=== PATIENT | female | born 1930 | race Caucasian/White ===

== ENCOUNTER → 2016-05-05 | Outpatient (CLI) | payer MEDICARE ==
[~2016-05-05] MED LIST: AC325T PO; ALPR.25T PO; ANTI1CAP2 PO; ATN25T PO; AZIT250T5 PO; CALC-140 PO; CALC500T55 PO; CEPH500T PO; CHOL10002 PO; CHOL200018 PO; DGX.125T PO; DIGO125T PO; FAMO40TA6 PO; FAMO40TA72 PO; GFN600TCR PO; GLIP10TA13 PO; GUAI5SYR PO; HYDR12.5 PO; MELA5TAB5 PO; MIRT15TA8 PO; MULT-557 PO; OMEG-9 PO; OMG1KC PO; RAMI10CA PO; SIMV80TA3 PO; SRTR100T PO; VITA-187 PO; VITA-37 PO; WARF3TAB PO; WRF2T PO; WRF3T PO
== END ==
LOC: LAB 11:47
PROVIDERS: ATTEND Family Medicine
DX: Z51.81 Encounter for therapeutic drug level monitoring (principal); Z79.01 Long term (current) use of anticoagulants; I48.91 Unspecified atrial fibrillation
CPT/HCPCS: 36415; 85610

== ENCOUNTER → 2016-05-11 | Outpatient (CLI) | payer MEDICARE | LOC: EMS 21:55 | PROVIDERS: ATTEND Emergency Medicine | DX: R42 Dizziness and giddiness (principal) ==

== ENCOUNTER 2016-05-12 00:05 | Observation (INO) | payer MEDICARE ==
[~2016-05-12] VITALS: Ht 167.6 cm; Wt 73.8 kg
[2016-05-12] VITALS (7 sets, daily range): BP systolic 119–174; BP diastolic 65–92
[2016-05-12] MEDS ORDERED: MECLIZINE 25 MG (ANTIVERT) TABLET PO ONE (00:20)
[2016-05-12] MEDS ORDERED: SODIUM CHLORIDE FLUSH 10 ML SYR IV PRN (00:20)
[2016-05-12] MEDS ORDERED: NS IV 500 ML 500 ML IV SCH (00:20)
[2016-05-12] MEDS ORDERED: SODIUM CHLORIDE 250 ML IV PRN (00:20)
[2016-05-12] MEDS ORDERED: SODIUM CHLORIDE FLUSH 3 ML SYR IV PRN (00:20)
[2016-05-12] MEDS ORDERED: ONDANSETRON 2 MG/ML (Z0FRAN) 2 ML VIAL IV ONE (00:20)
[2016-05-12 01:17] LABS: BASOPHILS % (AUTO) 1 % (0-2); EOSINOPHILS # (AUTO) 0.2 10^3uL; EOSINOPHILS % (AUTO) 2 % (0-4); LYMPHOCYTES # (AUTO) 1.5 X10^3; MEAN CORPUSCULAR HEMOGLOBIN 30.4 PG (26.0-34.0); MEAN CORPUSCULAR HGB CONC 33.7 g/dL (31.0-37.0); MEAN CORPUSCULAR VOLUME 90 FL (80-100); MEAN PLATELET VOLUME 10.9 FL (6.0-9.5); MONOCYTES # (AUTO) 0.6 X10^3; MONOCYTES % (AUTO) 7 % (3-11); NEUTROPHILS # (AUTO) 6.6 X10^3; NEUTROPHILS % (AUTO) 73 % (51-67); PLATELET COUNT 183 10^3uL (150-450); WHITE BLOOD COUNT 9.04 10^3uL (4.0-11.0)
[2016-05-12 01:28] LABS: BILIRUBIN,URINE Negative (Negative); CLARITY,URINE Clear; COLOR,URINE Yellow; GLUCOSE, URINE (UA) Negative (Negative); LEUKOCYTE ESTERASE ,URINE 2+ (Negative); UROBILINOGEN,URINE 0.2 mg/dL (0.2-1.0)
[2016-05-12 01:41] LABS: RBC,URINE None Seen /HPF; URINE CENTRIFUGED VOLUME 12 mL
[2016-05-12 01:50] LABS: ALBUMIN 4.2 g/dL (3.4-5.0); ALKALINE PHOSPHATASE 76 U/L (38-126); ANION GAP 15.2 MEQ/L (3-15); BUN/CREATININE RATIO 26 (10-20); CALCULATED IONIZED CALCIUM 4.3 mg/dL (3.8-4.6); CREATINE KINASE 39 U/L (30-135); TOTAL PROTEIN 7.1 g/dL (6.4-8.5)
[2016-05-12] MEDS ORDERED: cefTRIAXone SODIUM 1,000 MG in SODIUM CHLORIDE 50 ML IV ONE (02:05)
[2016-05-12] MEDS ORDERED: ONDANSETRON 2 MG/ML (Z0FRAN) 2 ML VIAL IV PRN (04:40)
[2016-05-12] MEDS ORDERED: DOCUSATE SODIUM 100 MG (COLACE) CAP PO PRN (04:40)
[2016-05-12] MEDS: cefTRIAXone SODIUM 1,000 MG in SODIUM CHLORIDE 50 ML IV SCH ×2 (04:40→05:41)
[2016-05-12] MEDS ORDERED: ACETAMINOPHEN 325 MG TAB (TYLENOL) PO PRN (04:40)
[2016-05-12] MEDS ORDERED: POLYETHYLENE GLYCOL 17 GM (MIRALAX) PACKET PO PRN (04:40)
[2016-05-12] MEDS ORDERED: BISACODYL 10 MG SUPP (DULCOLAX) PR PRN (04:40)
[2016-05-12] MEDS ORDERED: SODIUM CHLORIDE 50 ML IV ONE (05:33)
[2016-05-12] MEDS ORDERED: cefTRIAXone 1 GM (ROCEPHIN) VIAL ONE (05:33)
[2016-05-12] MEDS: PANTOPRAZOLE 40 MG (PROTONIX) TAB PO SCH (06:25)
[2016-05-12] MEDS: OMEGA-3 ACID ETHYL ESTERS 1 GM (LOVAZA) CAPSULE PO SCH (08:45)
[2016-05-12] MEDS: MULTIVITAMIN W/MINERALS (THERAGRAN M) TABLET PO SCH (08:45)
[2016-05-12] MEDS: lisINopril 40 MG (PRINIVIL) TABLET PO SCH (08:45)
[2016-05-12] MEDS: DIGOXIN 0.125 MG (LANOXIN) TAB PO SCH (08:45)
[2016-05-12] MEDS ORDERED: NON-FORMULARY MEDICATION 1 EA EA (Ramipril 10 MG) PO SCH (09:00)
[2016-05-12] MEDS ORDERED: [UNRECOGNIZED DRUG - OTHER] PO SCH (09:00)
[2016-05-12] MEDS ORDERED: NON-FORMULARY MEDICATION 1 EA EA (Omega 3 Polyunsat Fatty Acids (Fish Oil) 1,000 MG) PO SCH (09:00)
[2016-05-12] MEDS ORDERED: B COMPLEX WITH VITAMIN C PO SCH (09:00)
[2016-05-12] MEDS ORDERED: NON-FORMULARY MEDICATION 1 EA EA (Simvastatin 80 MG) PO SCH (21:00)
[2016-05-12] MEDS ORDERED: NON-FORMULARY MEDICATION 1 EA EA (Famotidine 40 MG) PO SCH (21:00)
[2016-05-12] MEDS ORDERED: ATENOLOL 25 MG (TENORMIN) TAB PO SCH (21:00)
[2016-05-12] MEDS ORDERED: FAMOTIDINE 20 MG (PEPCID) TABLET PO SCH (21:00)
[2016-05-12] MEDS ORDERED: SIMvastatin 40 MG (ZOCOR) TAB PO SCH (21:00)
[2016-05-12] MEDS ORDERED: NON-FORMULARY MEDICATION 1 EA EA (Melatonin 5 MG) PO SCH (21:00)
[2016-05-13] VITALS (7 sets, daily range): BP systolic 124–183; BP diastolic 67–102
[2016-05-13] MEDS ORDERED: SODIUM CHLORIDE 50 ML IV ONE (05:44)
[2016-05-13 06:14] LABS: BASOPHILS % (AUTO) 1 % (0-2); EOSINOPHILS # (AUTO) 0.2 10^3uL; EOSINOPHILS % (AUTO) 2 % (0-4); MEAN CORPUSCULAR HEMOGLOBIN 29.8 PG (26.0-34.0); MEAN CORPUSCULAR HGB CONC 32.7 g/dL (31.0-37.0); MEAN CORPUSCULAR VOLUME 91 FL (80-100); MEAN PLATELET VOLUME 11.1 FL (6.0-9.5); MONOCYTES # (AUTO) 0.7 X10^3; MONOCYTES % (AUTO) 9 % (3-11); NEUTROPHILS # (AUTO) 5.3 X10^3; NEUTROPHILS % (AUTO) 64 % (51-67); PLATELET COUNT 172 10^3uL (150-450); WHITE BLOOD COUNT 8.27 10^3uL (4.0-11.0)
[2016-05-13] MEDS: PANTOPRAZOLE 40 MG (PROTONIX) TAB PO SCH (06:22)
[2016-05-13 06:56] LABS: ANION GAP 13.7 MEQ/L (3-15); CALCULATED IONIZED CALCIUM 4.1 mg/dL (3.8-4.6); TOTAL PROTEIN 7.2 g/dL (6.4-8.5)
[2016-05-13] MEDS ORDERED: cefTRIAXone SODIUM 1,000 MG in SODIUM CHLORIDE 50 ML IV SCH (07:00)
[2016-05-13] MEDS: MULTIVITAMIN W/MINERALS (THERAGRAN M) TABLET PO SCH (08:16)
[2016-05-13] MEDS: lisINopril 40 MG (PRINIVIL) TABLET PO SCH (08:16)
[2016-05-13] MEDS: DIGOXIN 0.125 MG (LANOXIN) TAB PO SCH (08:16)
[2016-05-13] MEDS: OMEGA-3 ACID ETHYL ESTERS 1 GM (LOVAZA) CAPSULE PO SCH (08:16)
[2016-05-13] MEDS ORDERED: NS FLUSH 10 ML PRN IV (10:05)
[2016-05-13] MEDS ORDERED: NS FLUSH 3 ML PRN IV (10:05)
[2016-05-14] MEDS ORDERED: NS FLUSH 3 ML DAILY IV SCH (09:00)
== END 2016-05-13 17:35 | disposition home or self-care (01) ==
LOC: EDUNIT# 00:05 → ED 00:10 → MED/SURG 04:19
PROVIDERS: ADMIT Family Medicine; ATTEND Family Medicine
DX: N39.0 Urinary tract infection, site not specified (principal); R42 Dizziness and giddiness; E86.0 Dehydration; R51 Headache; R79.1 Abnormal coagulation profile; E11.9 Type 2 diabetes mellitus without complications; I48.91 Unspecified atrial fibrillation; I10 Essential (primary) hypertension; E78.5 Hyperlipidemia, unspecified; K59.00 Constipation, unspecified; Z79.01 Long term (current) use of anticoagulants; Z95.0 Presence of cardiac pacemaker
CPT/HCPCS: 36415; 70450; 71010; 80053; 80162; 81003; 81015; 82550; 82553; 83880; 84443; 84484; 85025; 85610; 85730; 86140; 87077; 87088; 87186; 93005; 96361; 96365; 96375; 96376; 97161; 99285; A9270; G0378; G8978; G8979; J0696; J2405; J7030; J7040; 93010; 99218; 99284

== ENCOUNTER → 2016-05-16 | Outpatient (CLI) | payer MEDICARE | LOC: LAB 10:36 | PROVIDERS: ATTEND Internal Medicine | DX: I48.91 Unspecified atrial fibrillation (principal) | CPT/HCPCS: 36415; 85610 ==

== ENCOUNTER → 2016-05-30 | Outpatient (CLI) | payer MEDICARE | LOC: LAB 14:51 | PROVIDERS: ATTEND Family Medicine | DX: Z51.81 Encounter for therapeutic drug level monitoring (principal); Z79.01 Long term (current) use of anticoagulants; I48.2 Chronic atrial fibrillation | CPT/HCPCS: 36415; 85610 ==

== ENCOUNTER → 2016-06-06 | Outpatient (REF) | payer MEDICARE | LOC: LAB 11:35 | PROVIDERS: ATTEND Family Medicine | DX: R30.0 Dysuria (principal) | CPT/HCPCS: 87088 ==

== ENCOUNTER → 2016-06-27 | Outpatient (CLI) | payer MEDICARE | LOC: LAB 10:22 | PROVIDERS: ATTEND Family Medicine | DX: Z51.81 Encounter for therapeutic drug level monitoring (principal); Z79.01 Long term (current) use of anticoagulants; I48.91 Unspecified atrial fibrillation | CPT/HCPCS: 36415; 85610 ==

== ENCOUNTER → 2016-07-19 | Outpatient (REF) | payer MEDICARE ==
[2016-07-19 11:50] LABS: BASOPHILS % (AUTO) 1 % (0-2); EOSINOPHILS # (AUTO) 0.1 10^3uL; EOSINOPHILS % (AUTO) 1 % (0-4); LYMPHOCYTES # (AUTO) 1.7 X10^3; MEAN CORPUSCULAR HEMOGLOBIN 29.4 PG (26.0-34.0); MEAN CORPUSCULAR HGB CONC 32.3 g/dL (31.0-37.0); MEAN CORPUSCULAR VOLUME 91 FL (80-100); MONOCYTES # (AUTO) 0.7 X10^3; MONOCYTES % (AUTO) 8 % (3-11); NEUTROPHILS # (AUTO) 5.6 X10^3; NEUTROPHILS % (AUTO) 69 % (51-67); PLATELET COUNT 183 10^3uL (150-450); WHITE BLOOD COUNT 8.07 10^3uL (4.0-11.0)
[2016-07-19 12:25] LABS: ALBUMIN 4.1 g/dL (3.4-5.0); ANION GAP 14.5 MEQ/L (3-15); CALCULATED IONIZED CALCIUM 4.3 mg/dL (3.8-4.6); TOTAL PROTEIN 7.1 g/dL (6.4-8.5)
== END ==
LOC: LAB 11:38
PROVIDERS: ATTEND Family Medicine
DX: I10 Essential (primary) hypertension (principal); E11.9 Type 2 diabetes mellitus without complications; I48.2 Chronic atrial fibrillation
CPT/HCPCS: 80053; 83036; 85025; 85610

== ENCOUNTER → 2016-07-27 | Outpatient (CLI) | payer MEDICARE ==
[~2016-07-27] MED LIST changes: -AC325T PO; -GFN600TCR PO; -GUAI5SYR PO
--- NOTE | 2016-07-27 11:59 | Diagnostic Imaging Report ---
INDICATION: Cough with fever and chills PA and lateral views of the chest are obtained. Comparison is made to the study of 05/12/2016. Heart size is at the upper limits of normal. Pulmonary vascularity is unremarkable. There is air trapping without evidence of pneumothorax or consolidation. Pacemaker device and leads are again noted in the chest wall. IMPRESSION: Probable emphysema and borderline cardiomegaly. Overall, no significant change is identified. Dictated by: Dictated on workstation # [id number]
== END ==
LOC: RAD 11:16
PROVIDERS: ATTEND Family Medicine
DX: R05 Cough (principal)
CPT/HCPCS: 71020

== ENCOUNTER → 2016-08-09 | Outpatient (CLI) | payer MEDICARE ==
[~2016-08-09] MED LIST changes: +AC325T PO; +GFN600TCR PO; +GUAI5SYR PO
--- NOTE | 2016-08-09 10:17 | Diagnostic Imaging Report ---
INDICATION: Dyspnea, acute bronchitis. DISCUSSION: Two views of the chest were obtained, comparison 07/28/2016. Cardiomegaly is stable. Underlying COPD is stable. Right-sided pacemaker and left-sided pacemaker leads are again noted. No focal consolidation, pleural fluid, or pneumothorax. Age-related degenerative changes are present throughout the thoracic spine. IMPRESSION: 1. Cardiomegaly, stable. Dictated by: Dictated on workstation # [id number]
== END ==
LOC: LAB 09:16
PROVIDERS: ATTEND Internal Medicine
DX: Z51.81 Encounter for therapeutic drug level monitoring (principal); Z79.01 Long term (current) use of anticoagulants; I48.91 Unspecified atrial fibrillation; J20.5 Acute bronchitis due to respiratory syncytial virus; I51.7 Cardiomegaly; E11.9 Type 2 diabetes mellitus without complications
CPT/HCPCS: 36415; 71020; 83036; 85610

== ENCOUNTER → 2016-08-15 | Outpatient (REF) | payer MEDICARE ==
[2016-08-15 10:31] LABS: ANION GAP 16.8 MEQ/L (3-15)
== END ==
LOC: LAB 09:44
PROVIDERS: ATTEND Family Medicine
DX: I10 Essential (primary) hypertension (principal); E11.9 Type 2 diabetes mellitus without complications; I48.2 Chronic atrial fibrillation
CPT/HCPCS: 80048; 85610

== ENCOUNTER → 2016-09-02 | Outpatient (REF) | payer MEDICARE ==
[2016-09-02 11:06] LABS: BILIRUBIN,URINE Negative (Negative); CLARITY,URINE Clear; COLOR,URINE Yellow; GLUCOSE, URINE (UA) Negative (Negative); LEUKOCYTE ESTERASE ,URINE 1+ (Negative); PH,URINE 5.5 (5.0 - 8.0); UROBILINOGEN,URINE 0.2 mg/dL (0.2-1.0)
[2016-09-02 11:16] LABS: URINE CENTRIFUGED VOLUME 12 mL
[2016-09-02 11:19] LABS: RBC,URINE 0-2 /HPF
== END ==
LOC: LAB 10:59
PROVIDERS: ATTEND Physician Assistant Surgical
DX: R11.0 Nausea (principal); R82.99 Other abnormal findings in urine
CPT/HCPCS: 81003; 81015; 87088

== ENCOUNTER → 2016-09-12 | Outpatient (CLI) | payer MEDICARE | LOC: LAB 12:10 | PROVIDERS: ATTEND Family Medicine | DX: Z51.81 Encounter for therapeutic drug level monitoring (principal); Z79.01 Long term (current) use of anticoagulants; I48.91 Unspecified atrial fibrillation | CPT/HCPCS: 36415; 85610 ==